=== PATIENT | male | born 1965 | race Caucasian/White ===

== ENCOUNTER 2016-11-13 04:19 | Emergency (ER) | payer OTHER ==
[~2016-11-13] VITALS: Ht 182.9 cm; Wt 88.2 kg
[~2016-11-13 04:19] MED LIST: IBUP800T23 PO; TRAM50 PO
[2016-11-13 04:23] VITALS: BP 149/89; PULSE 65; RESP 18; TEMP 98.6; O2SAT 98
[2016-11-13 04:30] VITALS: BP 149/89; PULSE 65; RESP 18; TEMP 98.6; O2SAT 98
[2016-11-13] MEDS ORDERED: PENI500T PO ×2 (04:45→05:54)
[2016-11-13] MEDS ORDERED: MAGICADU2 SWISH-SWAL ×2 (04:45→05:54)
[2016-11-13] MEDS ORDERED: ULTR50TA5 PO ×2 (04:45→05:54)
--- NOTE | 2016-11-13 04:45 | PD ---
HPI Chief Complaint: Oral / Dental Pain or Problem Time Seen by Provider: 04:42 Travel History International Travel<30 days: No Contact w/Intl Traveler<30days: No Traveled to known affect area: No History of Present Illness HPI Patient is a 51-year-old male presents emergency department left tooth pain. Patient states hurting him and gradually worsening or past week. He states flaring on and off with him ever since he had a traumatic tooth injury some years ago. States that at that time his jaw was clenched shut suddenly and he broke several teeth. Patient has not followed up with a dentist in several decades. He states occasionally this to swell yesterday and some antibiotics and was down. Sometimes it goes down without any intervention at all. States she's not had any swelling but certainly the pain has gotten intense in the past few days is keeping him up at night. He's taken some Advil at home with minimal relief. Denies any fever denies any difficulty swallowing. PFSH Past Medical History Diminished Hearing: No Tetanus Vaccination: > 5 Years Influenza Vaccination: No Social History Alcohol Use: Yes (6 DRINKS PER WEEK) Tobacco Use: Yes (1 1/2 PPD FOR 20 YEARS) Substance Use: No Allergies-Medications (Allergen,Severity, Reaction): Coded Allergies: No Known Allergies (Verified , 11/13/16) Reported Meds & Prescriptions Reported Meds & Active Scripts Active Ultram (Tramadol HCl) 50 Mg Tab 50 Mg PO Q6H PRN Penicillin V Potassium 500 Mg Tab 500 Mg PO Q6H 7 Days Magic Mouthwash Adult Liq (Multi-Ingredient Mouthwash/Gargle) 120 Ml Susp 5 Ml SWISH-SWAL ACHS Each 5mL contains: Nystatin 200,000units, Diphenhydramine 4.25mg, Viscous Lidocaine 10mg, Christensen syrup 0.8 mL Review of Systems Except as stated in HPI: all other systems reviewed are Neg Physical Exam Narrative GENERAL: Well-nourished, well-developed patient. SKIN: Focused skin assessment warm/dry. HEAD: Normocephalic. EYES: No scleral icterus. No injection or drainage. ENT: There is minimal left-sided jaw tenderness, no overlying cellulitis or swelling. Culprit tooth appears to be first molar in the left mandibular side, deep Angelique with pulp exposed. No discrete abscess seen. No sublingual tenderness neck is supple. NECK: Supple, trachea midline. No JVD or lymphadenopathy. CARDIOVASCULAR: Regular rate and rhythm without murmurs, gallops, or rubs. RESPIRATORY: Breath sounds equal bilaterally. No accessory muscle use. GASTROINTESTINAL: Abdomen soft, non-tender, nondistended. MUSCULOSKELETAL: No cyanosis, or edema. BACK: Nontender without obvious deformity. No CVA tenderness. Data Data Last Documented VS Vital Signs Date Time Temp Pulse Resp B/P Pulse Ox O2 Delivery O2 Flow Rate FiO2 11/13/16 04:59 66 18 98 11/13/16 04:30 98.6 149/89 MDM Medical Decision Making Medical Screen Exam Complete: Yes Emergency Medical Condition: Yes Differential Diagnosis Jaw pain, dental pain, apical abscess, Pk's angina excluded clinically. Narrative Course Patient roomed in emergency department, appears well in no apparent distress. Culprit tooth appears to be left first molar. Discussed he needs follow-up with a dentist, will be placed on penicillin discussed symptomatic management returned ED criteria. Stable for discharge at this time. Diagnosis Primary Impression: Jaw pain Additional Impression: Dental caries Med/Other Pt SpecificInfo: Prescription(s) given Scripts Tramadol (Ultram)50 Mg Tab50 Mg PO Q6H PRN (PAIN) #12 TAB Ref 0 Prov:Jonah Naqvi MD 11/13/16 Penicillin V Potassium 500 Mg Plv443 Mg PO Q6H 7 Days Ref 0 Prov:Jonah Naqvi MD 11/13/16 Cvukejzp-Rqhmfougwuzumpl-Ibksnslyv Liq (Magic Mouthwash Adult Liq)120 Ml Susp5 Ml SWISH-SWAL ACHS #120 ML Ref 0 Each 5mL contains: Nystatin 200,000units, Diphenhydramine 4.25mg, Viscous Lidocaine 10mg, Christensen syrup 0.8 mL Prov:Jonah Naqvi MD 11/13/16 Disposition: 01 DISCHARGE HOME Condition: Stable Jonah Naqvi MD Nov 13, 2016 04:45
== END 2016-11-13 05:00 | disposition home or self-care (01) ==
LOC: PHED 04:19
DX: R68.84 Jaw pain (principal); K02.9 Dental caries, unspecified; F17.210 Nicotine dependence, cigarettes, uncomplicated
CPT/HCPCS: 99284

== ENCOUNTER 2016-11-16 15:32 | Emergency (ER) | payer OTHER ==
[~2016-11-16 15:32] MED LIST changes: -IBUP800T23 PO; +MAGICADU2 SWISH-SWAL; +PENI500T PO; -TRAM50 PO; +ULTR50TA5 PO
[2016-11-16 15:36] VITALS: BP 142/80; PULSE 84; RESP 20; TEMP 98.5; O2SAT 97
[2016-11-16] MEDS ORDERED: PROPARACAINE HCL 0.5% OPHT SOLN 15 ML BTL EACH EYE ONE (16:00)
--- NOTE | 2016-11-16 16:29 | PD ---
HPI Chief Complaint: Eye Problems/Injury Time Seen by Provider: 16:00 Travel History International Travel<30 days: No Contact w/Intl Traveler<30days: No Traveled to known affect area: No History of Present Illness HPI 51-year-old male presents to the emergency room for evaluation of foreign body to his left eye that occurred earlier today. He was grinding metal with safety glasses on when a small piece of the metal wire around the glasses and got into his eye. Patient states immediately after it occurred he rinsed his eye out with Visine drops. He had continued foreign body sensation and pain so he bought a second eye draining device which still did not relieve his symptoms. Patient denies photophobia, changes in visual acuity, drainage, or severe pain. Last tetanus shot was 5 years ago. [facility] Past Medical History Diminished Hearing: No Social History Alcohol Use: Yes (6 DRINKS PER WEEK) Tobacco Use: Yes (1 1/2 PPD FOR 20 YEARS) Substance Use: No Allergies-Medications (Allergen,Severity, Reaction): Coded Allergies: No Known Allergies (Verified , 11/16/16) Reported Meds & Prescriptions Reported Meds & Active Scripts Active No Active Prescriptions or Reported Medications Review of Systems Except as stated in HPI: all other systems reviewed are Neg Physical Exam Narrative GENERAL: Well-nourished, well-developed male in no acute distress. Afebrile. Ambulatory. SKIN: Focused skin assessment warm/dry. HEAD: Normocephalic. EYES: PERRL, EOMI, no discharge or injection. No scleral icterus. Visual acuity 20/20 bilaterally. No photophobia. Fluorescein staining reveals a less than 1 mm metallic foreign body at the 3 o'clock position of the left cornea. Foreign body is on the border of the cornea and conjunctiva. Negative Lesli sign. NECK: Supple, trachea midline. No JVD or lymphadenopathy. CARDIOVASCULAR: Regular rate and rhythm without murmurs, gallops, or rubs. RESPIRATORY: Breath sounds equal bilaterally. No accessory muscle use. PSYCHIATRIC: No delusional thought processes. No hallucinations. Data Data Last Documented VS Vital Signs Date Time Temp Pulse Resp B/P Pulse Ox O2 Delivery O2 Flow Rate FiO2 11/16/16 15:36 98.5 84 20 142/80 97 Orders Proparacaine 0.5% Opth Soln (Alcaine 0.5 (11/16/16 16:00) MDM Medical Decision Making Medical Screen Exam Complete: Yes Emergency Medical Condition: Yes Medical Record Reviewed: Yes Differential Diagnosis Corneal abrasion, corneal ulceration, foreign body, laceration Narrative Course 51-year-old male presents to the emergency room for evaluation of foreign body to the left eye that occurred earlier today. Patient was grinding metal when he felt in his eye. He is tried on titrated out without success. Physical exam reveals a less than 1 mm metallic foreign body at the 3 o'clock position of the left eye. His eye was numbed and foreign body was removed without difficulty. Patient reports immediate relief in symptoms. No changes in visual acuity or photophobia. Negative Lesli sign. He will be discharged with prescription for erythromycin ointment and told to follow-up with a licensed staff mft or return for worsening symptoms. He understands and agrees to plan. Diagnosis Primary Impression: Corneal abrasion, left Qualified Code: S05.02XA - Corneal abrasion, left, initial encounter Referrals: [facility] Patient Instructions: Corneal Abrasion (ED), General Instructions Additional Instructions: Rest and drink plenty of fluids. Erythromycin eye ointment as directed, for 5 days. Follow-up with an licensed staff mft. Return to the emergency room for worsening symptoms. Med/Other Pt SpecificInfo: Prescription(s) given Scripts No Active Prescriptions or Reported Meds Disposition: 01 DISCHARGE HOME Condition: Stable Tiffanie Clinton Nov 16, 2016 16:29
[2016-11-16] MEDS ORDERED: ERYTOIN10 LEFT EYE (16:30)
== END 2016-11-16 16:36 | disposition home or self-care (01) ==
LOC: PHEFT 15:32
DX: T15.02XA Foreign body in cornea, left eye, initial encounter (principal); F17.200 Nicotine dependence, unspecified, uncomplicated; X58.XXXA Exposure to other specified factors, initial encounter
CPT/HCPCS: 65220